=== PATIENT | male | born 1995 | race African-American/Black ===

== ENCOUNTER 2019-04-30 08:39 | Emergency (ER) | payer BC, MEDICAID, OTHER ==
[2019-04-30] MEDS ORDERED: DIPHENHYDRAMINE HCL 50 MG/ML VIAL IV ONE (10:51)
[2019-04-30] MEDS ORDERED: NORMAL SALINE 1000 ML 1,000 ML IV ONE ×2 (10:51→13:09)
[2019-04-30] MEDS ORDERED: PROCHLORPERAZINE EDISYLATE INJ 10 MG/2 ML VIAL IV ONE (10:51)
--- NOTE | 2019-04-30 11:33 | ER Document Report ---
Entered by SAMM ESTRELLA SCRIBE 04/30/19 1051 Acting as scribe for:RAFA PRESTON MD ED Headache - General Chief Complaint: Headache Stated Complaint: HEADACHE,DIZZY Time Seen by Provider: 04/30/19 10:42 Primary Care Provider: IVONNE PEREZ MD [Primary Care Provider] - Follow up as needed Mode of Arrival: Ambulatory Information source: Patient Notes: This 23 year old male patient presents to the ED today with complaints of a headache that began x2 days ago. Patient describes the headache as a throbbing pain near his forehead and temporal regions of his face that is increased when he stands. Patient reports nausea, dizziness, light/sound sensitivity, and pain behind his eyes. Patient states that he took tylenol with no relief. Patient denies cough, sneezing, vomiting, and sore throat. Patient notes that he did not receive a flu shot recently. Patient reports the headache started Tuesday evening, it was a slow onset and got progressively worse. He describes a throbbing sensation behind his eyes and forehead region. The throbbing is worse when he stands up. There is some nauseousness and dizziness when he stands up and looks about. There is some light and sound sensitivity. There is been no nausea or vomiting. He states he tried Tylenol and it helped some. He does not have a history of headaches. There is no cough, sneeze, or reported fever. TRAVEL OUTSIDE OF THE [place] IN LAST 30 DAYS: No - Related Data Allergies/Adverse Reactions: No Known Allergies Allergy (Verified 04/30/19 09:04) Past Medical History - General Information source: Patient - Social History Smoking Status: Never Smoker Cigarette use (# per day): No Chew tobacco use (# tins/day): No Smoking Education Provided: No Frequency of alcohol use: Occasional Drug Abuse: None Family History: DM Patient has suicidal ideation: No Patient has homicidal ideation: No - Immunizations Immunizations up to date: Yes Hx Diphtheria, Pertussis, Tetanus Vaccination: Yes Review of Systems - Review of Systems Constitutional: No symptoms reported EENT: See HPI, Eye pain, Other - Light and sound sensitivity. denies: Throat p ain Cardiovascular: See HPI, Dizziness Respiratory: See HPI Gastrointestinal: See HPI, Nausea, Other - Increased thirst for the past month Genitourinary: Other - Increased urination for the past month Male Genitourinary: No symptoms reported Musculoskeletal: No symptoms reported Skin: No symptoms reported Hematologic/Lymphatic: No symptoms reported Neurological/Psychological: See HPI, Headaches -: Yes All other systems reviewed and negative Physical Exam - Vital signs Vitals: Temp Pulse Resp BP Pulse Ox 98.8 F 94 16 123/69 97 04/30/19 08:43 04/30/19 08:43 04/30/19 08:43 04/30/19 08:43 04/30/19 08:43 Interpretation: Normal - General General appearance: Appears well, Alert - HEENT Head: Atraumatic, Tenderness - Frontal musculature tenderness with palpation in forehead. Temporal musculature tenderness with palpation Eyes: Other - Palpation to eyeballs causes pain. No nystagmus noted on looking left and right. He does complain of pain behind the eyeballs when he looks to the left or right. Pupils: PERRL Tympanic membrane: Normal Nasal: Normal Pharynx: Normal Neck: Other - When I have the patient flex his neck, he complains of pain to the posterior neck. Palpating over the cervical spinous processes is tender and becomes more tender when he attempts to flex his neck. There is no cervical muscle spasm or rigidity. - Respiratory Respiratory status: No respiratory distress Chest status: Nontender Breath sounds: Normal Chest palpation: Normal - Cardiovascular Rhythm: Regular Heart sounds: Normal auscultation Murmur: No - Abdominal Inspection: Normal Distension: No distension Bowel sounds: Normal Tenderness: Nontender Organomegaly: No organomegaly - Back Back: Normal, Nontender - Extremities General upper extremity: Normal inspection General lower extremity: Normal inspection - Neurological Neuro grossly intact: Yes - Psychological Associated symptoms: Normal affect, Normal mood - Skin Skin Temperature: Warm Skin Moisture: Moist Skin Color: Normal Course - Re-evaluation Re-evalutation: 04/30/19 13:06 Patient reports that his headache is only minimally improved. On asking him about blood sugars, he reports that he has had increased thirst and urination for about the past month. 04/30/19 14:46 Patient's hemoglobin A1c is greater than 14. The patient's physical exam suggest a viral syndrome with headache. CBC is unremarkable, does not suggest an infectious process. - Vital Signs Vital signs: Temp Pulse Resp BP Pulse Ox 98.8 F 94 16 123/69 97 04/30/19 08:43 04/30/19 08:43 04/30/19 08:43 04/30/19 08:43 04/30/19 08:43 - Laboratory Result Diagrams: 04/30/19 11:23 04/30/19 11:23 Laboratory results interpreted by me: 04/30/19 04/30/19 04/30/19 11:23 11:23 11:23 RBC 5.73 H MCH 26.0 L Sodium 136.2 L BUN 6 L Glucose 345 H Hemoglobin A1c % > 14.0 H Total Bilirubin 1.4 H Discharge - Discharge Clinical Impression: New onset type 2 diabetes mellitus, Viral syndrome Headache Qualifiers: Headache type: unspecified Headache chronicity pattern: acute headache Intractability: not intractable Qualified Code(s): R51 - Headache Condition: Stable Disposition: HOME, SELF-CARE Additional Instructions: Viral Syndrome: The physician has diagnosed a viral infection. Viruses not only cause "colds," but can cause many different symptoms including generalized aching, fever, headache, cough, diarrhea, nausea, vomiting, and fatigue. The treatment, for the most part, is simply relief of symptoms. This means that antibiotics are usually not given. Rest, fluids, pain medications and, occasionally, medication for the specific symptoms that are most bothersome will be prescribed. Use good handwashing to avoid passing the virus to others. Shared toys should be cleaned with disinfectant. Clean the toilets, sinks, and counter surfaces in bathrooms. Launder clothing in hot water. Contact the physician if you develop any new or unusual symptoms such as severe headache, stiff neck, high fever, chest pain, productive cough, or shortness of breath. You should be rechecked if you don't see marked improvement within seven to 10 days. Headache: The physician does not feel that the headache you are experiencing has a se rious underlying cause. Sometimes, a headache is the first symptom of another developing illness, such as a viral infection. . The treatment of headaches varies with the severity and cause of the pain. Not all headaches need pain shots. In fact, there is evidence that using narcotics for headaches may make them worse in the long run. The physician will determine the therapy that's in your best interest. If you develop a fever, if the headache is different from any you've previously experienced, or if the headache progressively worsens, then call your physician at once or go to the emergency room. Diabetes: You have an abnormally high blood sugar, this is called adult onset diabetes. It's very important that you follow up with your primary care provider to monitor and get control of your blood sugars. Uncontrolled high blood sugar leads to early heart disease, strokes, nerve damage, eye damage, and kidney damage. All diabetics should follow a diet designed to control the blood sugar. Overweight diabetics should exercise regularly and lose weight. If this is not sufficient to control the blood sugar, pills or insulin shots are necessary. Younger people who develop diabetes almost always require insulin daily. Home testing of blood sugars or urine sugar is required. Diabetic teaching is available to help you figure insulin doses and monitor the blood sugar. Call the physician if there is faintness, excess sleepiness, or very rapid breathing. If hypoglycemia (LOW blood sugar) develops, symptoms are shakiness, weakness, sweating, and confusion. In this case, you should eat or drink something with sugar at once. Start taking the metformin as prescribed today. Take Tylenol every 4 hours for headache and fever. Drink plenty of fluids throughout the day in the evening. Follow-up with your primary care provider in the next 2 to 3 days for recheck. RETURN TO THE EMERGENCY ROOM IF ANY NEW OR WORSENING SYMPTOMS. Prescriptions: Metformin HCl 850 mg PO BID #60 tablet Referrals: IVONNE PEREZ MD [Primary Care Provider] - Follow up in 3-5 days Scribe Attestation: 04/30/19 11:34 I personally performed the services described in the documentation, reviewed and edited the documentation which was dictated to the scribe in my presence, and it accurately records my words and actions. I personally performed the services described in the documentation, reviewed and edited the documentation which was dictated to the scribe in my presence, and it accurately records my words and actions.
[2019-04-30 11:51] LABS: ABSOLUTE EOSINOPHILS # (AUTO) 0.1 10^3/uL (0.0-0.6); ABSOLUTE LYMPHOCYTES (AUTO) 1.6 10^3/uL (0.5-4.7); ABSOLUTE MONOCYTES (AUTO) 0.6 10^3/uL (0.1-1.4); ABSOLUTE NEUT (AUTO) 2.7 10^3/uL (1.7-8.2); BASOPHILS % (AUTO) 0.4 % (0-2); EOSINOPHILS % (AUTO) 1.2 % (0-6); HEMATOCRIT 45.6 % (37.9-51.0); HEMOGLOBIN 14.9 g/dL (13.5-17.0); LYMPHOCYTES % (AUTO) 32.7 % (13-45); MEAN CORPUSCULAR HGB CONC 32.6 g/dL (32.0-36.0); MEAN CORPUSCULAR VOLUME 80 fl (80-97); MONOCYTES % (AUTO) 11.6 % (3-13); PLATELET COUNT 166 10^3/uL (150-450); RED BLOOD COUNT 5.73 10^6/uL (4.35-5.55); RED CELL DISTRIBUTION WIDTH 13.6 % (11.5-14.0); SEGMENTED NEUTROPHILS % (AUTO) 54.1 % (42-78); TOTAL CELLS COUNTED % (AUTO) 100 %; WHITE BLOOD COUNT 4.9 10^3/uL (4.0-10.5)
[2019-04-30 12:08] LABS: ALBUMIN 4.4 g/dL (3.5-5.0); ALKALINE PHOSPHATASE 80 U/L (38-126); ANION GAP 11 (5-19); ASPARTATE AMINO TRANSFERASE 39 U/L (17-59); BILIRUBIN,DIRECT 0.2 mg/dL (0.0-0.4); BILIRUBIN,TOTAL 1.4 mg/dL (0.2-1.3); BLOOD UREA NITROGEN 6 mg/dL (7-20); CALCIUM 9.8 mg/dL (8.4-10.2); CARBON DIOXIDE 26 mmol/L (22-30); CHLORIDE 99 mmol/L (98-107); GLUCOSE 345 mg/dL (75-110); POTASSIUM 4.4 mmol/L (3.6-5.0); TOTAL PROTEIN 7.3 g/dL (6.3-8.2)
[2019-04-30] MEDS ORDERED: KETOROLAC TROMETHAMINE INJ/PF 30 MG/1 ML SDV IV ONE (13:09)
[2019-04-30] MEDS ORDERED: ACETAMINOPHEN 325 MG TABLET PO ONE (14:57)
[2019-04-30] MEDS ORDERED: METFORMIN HCL 500 MG TABLET PO ONE (14:57)
[2019-04-30 15:28] VITALS: BP 127/67
== END 2019-04-30 15:32 | disposition home or self-care (01) ==
LOC: ER 08:39
DX: E11.9 Type 2 diabetes mellitus without complications (principal); B34.9 Viral infection, unspecified; R51 Headache; R42 Dizziness and giddiness; R11.0 Nausea; R63.1 Polydipsia
CPT/HCPCS: 99284; 96361; 96374; 96375; 36415; 85025; 80053; 83036; J1200; J1885; J0780; J7030

== ENCOUNTER 2019-05-02 10:25 | Emergency (ER) | payer OTHER ==
[2019-05-02] MEDS ORDERED: NORMAL SALINE 1000 ML 1,000 ML IV ONE ×2 (11:05→13:36)
[2019-05-02] MEDS ORDERED: MORPHINE SULFATE 10 MG/ML INJ IV ONE ×2 (11:06)
--- NOTE | 2019-05-02 11:07 | ER Document Report ---
ED Medical Screen (RME) - General Chief Complaint: Abdominal Pain Stated Complaint: ABDOMINAL PAIN Time Seen by Provider: 05/02/19 11:02 Primary Care Provider: IVONNE PEREZ MD [Primary Care Provider] - Follow up as needed Notes: Patient is a 23-year-old male who presents to the emergency department with a chief complaint of mid lower abdominal pain. He was seen here in the emergency department 2 days ago and was diagnosed with diabetes. Patient states that he has been vomiting ever since, but started to have abdominal mid lower abdominal pain since yesterday. Exam: Tender mid lower abdomen. I have greeted and performed a rapid initial assessment of this patient. A comprehensive ED assessment and evaluation of the patient, analysis of test results and completion of medical decision making process will be conducted by an additional ED providers. TRAVEL OUTSIDE OF THE [place] IN LAST 30 DAYS: No - Related Data Allergies/Adverse Reactions: No Known Allergies Allergy (Verified 05/02/19 10:38) Past Medical History - Social History Chew tobacco use (# tins/day): No Frequency of alcohol use: Occasional Drug Abuse: None - Immunizations Immunizations up to date: Yes Hx Diphtheria, Pertussis, Tetanus Vaccination: Yes Physical Exam - Vital signs Vitals: Temp Pulse Resp BP Pulse Ox 97.8 F 89 20 122/79 99 05/02/19 10:38 05/02/19 10:38 05/02/19 10:38 05/02/19 10:38 05/02/19 10:38 Course - Vital Signs Vital signs: Temp Pulse Resp BP Pulse Ox 97.8 F 89 20 122/79 99 05/02/19 10:38 05/02/19 10:38 05/02/19 10:38 05/02/19 10:38 05/02/19 10:38 Doctor's Discharge - Discharge Referrals: IVONNE PEREZ MD [Primary Care Provider] - Follow up as needed
[2019-05-02 11:51] LABS: ABSOLUTE LYMPHOCYTES (AUTO) 1.3 10^3/uL (0.5-4.7); ABSOLUTE MONOCYTES (AUTO) 0.7 10^3/uL (0.1-1.4); BASOPHILS % (AUTO) 0.5 % (0-2); EOSINOPHILS % (AUTO) 0.5 % (0-6); HEMATOCRIT 44.8 % (37.9-51.0); HEMOGLOBIN 14.8 g/dL (13.5-17.0); LYMPHOCYTES % (AUTO) 26.3 % (13-45); MEAN CORPUSCULAR HEMOGLOBIN 26.3 pg (27.0-33.4); MEAN CORPUSCULAR HGB CONC 33.1 g/dL (32.0-36.0); MEAN CORPUSCULAR VOLUME 80 fl (80-97); MONOCYTES % (AUTO) 13.2 % (3-13); PLATELET COUNT 158 10^3/uL (150-450); RED BLOOD COUNT 5.64 10^6/uL (4.35-5.55); RED CELL DISTRIBUTION WIDTH 13.7 % (11.5-14.0); SEGMENTED NEUTROPHILS % (AUTO) 59.5 % (42-78); TOTAL CELLS COUNTED % (AUTO) 100 %
[2019-05-02 12:05] LABS: ALBUMIN 4.5 g/dL (3.5-5.0); ALKALINE PHOSPHATASE 76 U/L (38-126); ANION GAP 19 (5-19); ASPARTATE AMINO TRANSFERASE 57 U/L (17-59); BILIRUBIN,DIRECT 0.2 mg/dL (0.0-0.4); BILIRUBIN,TOTAL 1.6 mg/dL (0.2-1.3); BLOOD UREA NITROGEN 8 mg/dL (7-20); CARBON DIOXIDE 17 mmol/L (22-30); CHLORIDE 99 mmol/L (98-107); GLUCOSE 273 mg/dL (75-110); POTASSIUM 4.2 mmol/L (3.6-5.0); TOTAL PROTEIN 7.6 g/dL (6.3-8.2)
[2019-05-02] MEDS ORDERED: IBUPROFEN 800 MG TABLET PO ONE (13:36)
[2019-05-02] MEDS ORDERED: METFORMIN HCL 500 MG TABLET PO ONE (13:36)
--- NOTE | 2019-05-02 13:41 | ER Document Report ---
ED General - General Chief Complaint: Abdominal Pain Stated Complaint: ABDOMINAL PAIN Time Seen by Provider: 05/02/19 11:02 Mode of Arrival: Medic Information source: Patient Notes: 23-year-old male presents emergency department with complaints of headache nausea vomiting diarrhea. Patient reports he was evaluated here in the emergency department Tuesday for a complaint of headache. It was discovered that he had diabetes. He reports his mother had diabetes. Patient reports he was prescribed metformin. He has taken 4 doses. He reports he felt better on Tuesday. He ate some Doritos. He reports started getting headache with nausea vomiting and diarrhea this morning. Denies fever. Patient is asking for something to eat and drink. TRAVEL OUTSIDE OF THE [place] IN LAST 30 DAYS: No - HPI Onset: This morning Quality of pain: Achy, Cramping Associated symptoms: Diarrhea, Headache, Nausea, Vomiting Exacerbated by: Denies Relieved by: Denies Similar symptoms previously: Yes Recently seen / treated by doctor: Yes - Related Data Allergies/Adverse Reactions: No Known Allergies Allergy (Verified 05/02/19 10:38) Past Medical History - General Information source: Patient - Social History Smoking Status: Never Smoker Chew tobacco use (# tins/day): No Frequency of alcohol use: Occasional Drug Abuse: None Lives with: Family Family History: DM Patient has suicidal ideation: No Patient has homicidal ideation: No Endocrine Medical History: Reports: Hx Diabetes Mellitus Type 2 Surgical Hx: Negative - Immunizations Immunizations up to date: Yes Hx Diphtheria, Pertussis, Tetanus Vaccination: Yes Review of Systems - Review of Systems Notes: Review HPI for review of systems., All other systems negative Physical Exam - Vital signs Vitals: Temp Pulse Resp BP Pulse Ox 97.8 F 89 20 122/79 99 05/02/19 10:38 05/02/19 10:38 05/02/19 10:38 05/02/19 10:38 05/02/19 10:38 - Notes Notes: PHYSICAL EXAMINATION: GENERAL: Well-appearing and in no acute distress HEAD: Atraumatic, normocephalic. EYES: Pupils equal round and reactive to light, extraocular movements intact, sclera anicteric, conjunctiva are normal. ENT: nares patent, oropharynx clear without exudates. Moist mucous membranes. NECK: Normal range of motion, supple without lymphadenopathy LUNGS: CTAB and equal. No wheezes rales or rhonchi. HEART: Regular rate and rhythm without murmurs ABDOMEN: Soft, RUQ/epigastric tenderness. No guarding, no rebound EXTREMITIES: Normal range of motion, no pitting edema. NEUROLOGICAL: Cranial nerves grossly intact. Normal sensory/motor exams. PSYCH: Normal mood, normal affect. SKIN: Warm, Dry, normal turgor, no rashes or lesions noted Course - Re-evaluation Re-evalutation: 05/02/19 16:07 23-year-old male presents with generalized abdominal pain and vomiting. Patient received 2 L of fluids. Patient is now holding down p.o. fluids eating crackers no vomiting since arrival. Patient looks good . labs unremarkable ultrasound shows fatty liver but LFTs are within normal limits. Last Accu-Chek was 191. Patient was instructed on clear liquids advance as tolerated. Follow-up with his primary care provider tuesday as scheduled. Patient verbalized understanding. Abdomen Ultrasound 05/02/19 13:36 IMPRESSION: LIMITED STUDY. HEPATOMEGALY WITH MARKED FATTY INFILTRATION OF THE LIVER. NO APPARENT ACUTE FINDINGS. Laboratory 05/02/19 05/02/19 05/02/19 11:35 11:35 14:49 WBC 5.0 RBC 5.64 H Hgb 14.8 Hct 44.8 MCV 80 MCH 26.3 L MCHC 33.1 RDW 13.7 Plt Count 158 Lymph % (Auto) 26.3 [place] % (Auto) 13.2 H Eos % (Auto) 0.5 Baso % (Auto) 0.5 Absolute Neuts (auto) 3.0 Absolute Lymphs (auto) 1.3 Absolute Monos (auto) 0.7 Absolute Eos (auto) 0.0 Absolute Basos (auto) 0.0 Seg Neutrophils % 59.5 Sodium 135.1 L Potassium 4.2 Chloride 99 Carbon Dioxide 17 L Anion Gap 19 BUN 8 Creatinine 0.86 Est GFR ( Amer) > 60 Est GFR (MDRD) Non-Af > 60 Glucose 273 H POC Glucose Calcium 10.0 Total Bilirubin 1.6 H Direct Bilirubin 0.2 Neonat Total Bilirubin Not Reportable Neonat Direct Bilirubin Not Reportable Neonat Indirect Bili Not Reportable AST 57 ALT 69 Alkaline Phosphatase 76 Total Protein 7.6 Albumin 4.5 Lipase 169.7 Urine Color YELLOW Urine Appearance CLEAR Urine pH 5.0 Ur Specific Perry 1.026 Urine Protein 30 H Urine Glucose (UA) >=500 H Urine Ketones 80 H Urine Blood NEGATIVE Urine Nitrite NEGATIVE Urine Bilirubin NEGATIVE Urine Urobilinogen NEGATIVE Ur Leukocyte Esterase NEGATIVE Urine WBC (Auto) 0 Urine RBC (Auto) 0 Urine Bacteria (Auto) TRACE Squamous Epi Cells Auto <1 Urine Mucus (Auto) RARE Urine Ascorbic Acid NEGATIVE 05/02/19 16:02 WBC RBC Hgb Hct MCV MCH MCHC RDW Plt Count Lymph % (Auto) [place] % (Auto) Eos % (Auto) Baso % (Auto) Absolute Neuts (auto) Absolute Lymphs (auto) Absolute Monos (auto) Absolute Eos (auto) Absolute Basos (auto) Seg Neutrophils % Sodium Potassium Chloride Carbon Dioxide Anion Gap BUN Creatinine Est GFR ( Amer) Est GFR (MDRD) Non-Af Glucose POC Glucose 191 H Calcium Total Bilirubin Direct Bilirubin Neonat Total Bilirubin Neonat Direct Bilirubin Neonat Indirect Bili AST ALT Alkaline Phosphatase Total Protein Albumin Lipase Urine Color Urine Appearance Urine pH Ur Specific Perry Urine Protein Urine Glucose (UA) Urine Ketones Urine Blood Urine Nitrite Urine Bilirubin Urine Urobilinogen Ur Leukocyte Esterase Urine WBC (Auto) Urine RBC (Auto) Urine Bacteria (Auto) Squamous Epi Cells Auto Urine Mucus (Auto) Urine Ascorbic Acid 05/02/19 19:08 - Vital Signs Vital signs: Temp Pulse Resp BP Pulse Ox 99.1 F 71 18 132/77 H 98 05/02/19 17:12 05/02/19 17:12 05/02/19 17:12 05/02/19 17:12 05/02/19 17:12 - Laboratory Result Diagrams: 05/02/19 11:35 05/02/19 11:35 Laboratory results interpreted by me: 05/02/19 05/02/19 05/02/19 11:35 11:35 14:49 RBC 5.64 H MCH 26.3 L [place] % (Auto) 13.2 H Sodium 135.1 L Carbon Dioxide 17 L Glucose 273 H POC Glucose Total Bilirubin 1.6 H Urine Protein 30 H Urine Glucose (UA) >=500 H Urine Ketones 80 H 05/02/19 16:02 RBC MCH [place] % (Auto) Sodium Carbon Dioxide Glucose POC Glucose 191 H Total Bilirubin Urine Protein Urine Glucose (UA) Urine Ketones - Diagnostic Test Radiology reviewed: Reports reviewed Discharge - Discharge Clinical Impression: Nausea vomiting and diarrhea, New onset type 2 diabetes mellitus, Fatty liver Abdominal pain Qualifiers: Abdominal location: right upper quadrant Qualified Code(s): R10.11 - Right upper quadrant pain Condition: Stable Disposition: HOME, SELF-CARE Instructions: Abdominal Pain ([facility]), Antinausea Medication ([facility]), Diarrhea, Nonspecific ([facility]), Intravenous (IV) Fluids ([facility]), Vomiting ([facility]) Additional Instructions: *You have been evaluated for abdominal pain, nausea vomiting, fatty liver *Take your diabetic medication as prescribed, take Zofran as indicated for nausea Push fluids clear liquid diet advance as tolerated *Follow up with your primary care provider Tuesday as scheduled *Return to ED for worsening condition, changes, needs *Return to ED if not better in 24 hours Forms: Return to Work
--- NOTE | 2019-05-02 15:05 | RADIOLOGY REPORT (SQ) ---
EXAM DESCRIPTION: U/S ABDOMEN LIMITED W/O DOP COMPLETED DATE/TIME: 05/02/2019 2:52 pm REASON FOR STUDY: ruq abd pain n/v/d COMPARISON: None. TECHNIQUE: Dynamic and static grayscale images acquired of the liver and recorded on PACS. Addition al selected color Doppler and spectral images recorded. Selected velocities recorded. Note: Study does not meet criteria for full duplex/doppler scan LIMITATIONS: Study limited due to the patient's body habitus and marked fatty infiltration of the li celia. FINDINGS: LIVER: Enlarged, measuring 21 cm. Limited penetration. Echotexture is coarse with increa sed echogenicity consistent with fatty infiltration. No focal lesions are seen. LIVER VASCULATURE: The portal vein could not be visualized. GALLBLADDER: No stones. Normal wall thickness. No pericholecystic fluid. ULTRASOUND-DETECTED MCKENZIE'S SIGN: Negative. INTRAHEPATIC DUCTS AND COMMON DUCT: The extrahepatic bile ducts could not be visualized. ASCITES: None. OTHER: No other significant finding. IMPRESSION: LIMITED STUDY. HEPATOMEGALY WITH MARKED FATTY INFILTRATION OF THE LIVER. NO APPARENT A CUTE FINDINGS. TECHNICAL DOCUMENTATION: JOB ID: [id number] [employer]- All Rights Reserved Reading location - IP/workstation name: [email or web address]
[2019-05-02 15:17] LABS: APPEARANCE,URINE CLEAR; BILIRUBIN,URINE NEGATIVE (NEGATIVE); COLOR,URINE YELLOW; GLUCOSE, URINE >=500 mg/dL (NEGATIVE); KETONES,URINE 80 mg/dL (NEGATIVE); LEUKOCYTE ESTERASE,URINE NEGATIVE (NEGATIVE); NITRITE,URINE NEGATIVE (NEGATIVE); PROTEIN,URINE 30 mg/dL (NEGATIVE); URINE SPECIFIC GRAVITY 1.026; UROBILINOGEN,URINE NEGATIVE mg/dL (<2.0)
[2019-05-02] MEDS ORDERED: ONDANSETRON ODT 4 MG TAB (6 TAB/ER DISP) PO PRN (16:23)
[2019-05-02 17:11] VITALS: BP 132/77
== END 2019-05-02 17:12 | disposition home or self-care (01) ==
LOC: ER 10:25
DX: K76.0 Fatty (change of) liver, not elsewhere classified (principal); E11.9 Type 2 diabetes mellitus without complications; R51 Headache; R11.2 Nausea with vomiting, unspecified; R19.7 Diarrhea, unspecified; R10.11 Right upper quadrant pain
CPT/HCPCS: 99284; 96361; 96374; 36415; 82962; 83690; 85025; 80053; 81001; 76705; J2270; J7030

== ENCOUNTER 2019-05-03 04:29 | Observation (INO) | payer OTHER ==
[2019-05-03] MEDS ORDERED: NORMAL SALINE 500 ML IV ONE (04:52)
[2019-05-03 05:29] LABS: ABSOLUTE MONOCYTES (AUTO) 0.5 10^3/uL (0.1-1.4); RED BLOOD COUNT 5.57 10^6/uL (4.35-5.55); TOTAL CELLS COUNTED % (AUTO) 100 %
[2019-05-03 05:37] LABS: MEAN CORPUSCULAR VOLUME 79 fl (80-97)
[2019-05-03 05:53] LABS: HEMATOCRIT 44.1 % (37.9-51.0); WHITE BLOOD COUNT 6.2 10^3/uL (4.0-10.5)
[2019-05-03 05:54] LABS: ABSOLUTE LYMPHOCYTES (AUTO) 0.9 10^3/uL (0.5-4.7); ABSOLUTE NEUT (AUTO) 4.7 10^3/uL (1.7-8.2); BASOPHILS % (AUTO) 0.4 % (0-2); EOSINOPHILS % (AUTO) 0.3 % (0-6); LYMPHOCYTES % (AUTO) 15.4 % (13-45); MONOCYTES % (AUTO) 8.2 % (3-13); PLATELET COUNT 174 10^3/uL (150-450); RED CELL DISTRIBUTION WIDTH 13.8 % (11.5-14.0); SEGMENTED NEUTROPHILS % (AUTO) 75.7 % (42-78)
[2019-05-03 05:57] LABS: ALBUMIN 4.5 g/dL (3.5-5.0); ALKALINE PHOSPHATASE 77 U/L (38-126); ASPARTATE AMINO TRANSFERASE 59 U/L (17-59); BILIRUBIN,DIRECT 0.3 mg/dL (0.0-0.4); BILIRUBIN,TOTAL 1.6 mg/dL (0.2-1.3); BLOOD UREA NITROGEN 7 mg/dL (7-20); CALCIUM 10.1 mg/dL (8.4-10.2); CARBON DIOXIDE 12 mmol/L (22-30); GLUCOSE 259 mg/dL (75-110); TOTAL PROTEIN 7.4 g/dL (6.3-8.2)
[2019-05-03 06:03] LABS: CHLORIDE 102 mmol/L (98-107)
[2019-05-03 06:06] LABS: ANION GAP 22 (5-19)
[2019-05-03 06:25] LABS: APPEARANCE,URINE CLEAR; BILIRUBIN,URINE NEGATIVE (NEGATIVE); COLOR,URINE STRAW; GLUCOSE, URINE >=500 mg/dL (NEGATIVE); KETONES,URINE 80 mg/dL (NEGATIVE); LEUKOCYTE ESTERASE,URINE NEGATIVE (NEGATIVE); NITRITE,URINE NEGATIVE (NEGATIVE); PROTEIN,URINE NEGATIVE (NEGATIVE); URINE SPECIFIC GRAVITY 1.016; UROBILINOGEN,URINE NEGATIVE mg/dL (<2.0)
[2019-05-03] MEDS ORDERED: MORPHINE SULFATE 10 MG/ML INJ IV ONE ×2 (06:57→09:29)
[2019-05-03] MEDS ORDERED: ONDANSETRON HCL INJ/PF 4 MG/2 ML SDV IV ONE ×2 (06:57→09:29)
[2019-05-03] MEDS ORDERED: LIDOCAINE 2% VISCOUS SOLN 15 ML UDCUP PO ONE ×2 (06:58→15:06)
[2019-05-03] MEDS ORDERED: MAG HYDROX/AL HYDROX/SIMETH SUSP 30 ML UDCUP PO ONE ×2 (06:58→15:06)
[2019-05-03] MEDS: RINGERS SOLUTION,LACTATED 1,000 ML IV PRN ×3 (07:16→16:40)
[2019-05-03 07:22] LABS: PHOSPHORUS 2.5 mg/dL (2.5-4.5)
[2019-05-03 07:59] LABS: VENOUS BLOOD BASE EXCESS -8.2 mmol/L; VENOUS BLOOD HCO3 13.8 mmol/L (20-32); VENOUS BLOOD PCO2 22.4 mmHg (35-63); VENOUS BLOOD PH 7.41 (7.30-7.42)
--- NOTE | 2019-05-03 08:43 | ER Document Report ---
Entered by DENYS AWAN SCRIBE 05/03/19 0627 Acting as scribe for:RAFA PRESTON MD ED GI/ - General Chief Complaint: Abdominal Pain Stated Complaint: ABDOMINAL PAIN Time Seen by Provider: 05/03/19 06:24 Notes: This 23 year old male patient presents to the emergency department today for complaints of lower abdominal pain with associated nausea and vomiting. Patient was seen here initially on 04/30 for a headache with associated dizziness which has since subsided. Patient was seen here again yesterday (05/02) for nausea without vomiting, diarrhea, and lower abdominal pain and was discharged with zofran. Patient reports that last night at about 10:30 PM he began vomiting and had increasing abdominal pain. Patient's serum CO2 on 04/30 was 26 and yesterday on 05/02 it was 17. On 04/30 the patient was diagnosed with Type II diabetes and was prescribed metformin. The patient had a right upper quadrant abdominal ultrasound done yesterday showing fatty infiltration liver with hepatomegaly, with the liver measuring 21 cm. Review of the chart from yesterday shows that yesterday morning he developed the nausea, vomiting, diarrhea and upper abdominal pain. He had a gallbladder ultrasound done that showed fatty infiltration of the liver and hepatomegaly with the liver measuring 21 cm. At that time he had had 4 doses of his Metformin. Yesterday in the emergency room he was treated with normal saline, morphine, metformin, Motrin, and Zofran. TRAVEL OUTSIDE OF THE [place] IN LAST 30 DAYS: No - Related Data Allergies/Adverse Reactions: No Known Allergies Allergy (Verified 05/02/19 10:38) Home Medications: metformin Past Medical History - Social History Smoking Status: Never Smoker Frequency of alcohol use: Occasional Drug Abuse: None Family History: DM Patient has suicidal ideation: No Patient has homicidal ideation: No Endocrine Medical History: Reports: Hx Diabetes Mellitus Type 2 - Immunizations Immunizations up to date: Yes Hx Diphtheria, Pertussis, Tetanus Vaccination: Yes Physical Exam - Vital signs Vitals: Temp Pulse Resp BP Pulse Ox 98.1 F 75 18 126/78 H 100 05/03/19 05:00 05/03/19 05:00 05/03/19 05:00 05/03/19 05:00 05/03/19 05:00 Interpretation: Normal - General General appearance: Alert, Other - uncomfortable - HEENT Head: Normocephalic, Atraumatic Eyes: Normal Pupils: PERRL Mucous membranes: Dry - with ketone odor on breath - Respiratory Respiratory status: No respiratory distress Chest status: Nontender Breath sounds: Normal Chest palpation: Normal - Cardiovascular Rhythm: Regular Heart sounds: Normal auscultation Murmur: No - Abdominal Inspection: Other - abdominal cramping Tenderness: Tender - epigastric - Back Back: Normal, Nontender - Extremities General upper extremity: Normal inspection. No: Edema General lower extremity: Normal inspection. No: Edema - Neurological Neuro grossly intact: Yes Cognition: Normal Orientation: AAOx4 Dennys Coma Scale Eye Opening: Spontaneous Dennys Coma Scale Verbal: Oriented [place] Coma Scale Motor: Obeys Commands [place] Coma Scale Total: 15 Speech: Normal - Psychological Associated symptoms: Normal affect, Normal mood - Skin Skin Temperature: Warm Skin Moisture: Dry Skin Color: Normal Course - Re-evaluation Re-evalutation: 05/03/19 11:57 Patient reports that the nauseousness is much better at this time. He has not urinated since the first time when he provided a specimen earlier today. His abdominal pain is improved at this time. 05/03/19 15:42 The repeat Chem-7 done after 1 L of normal saline and 3 L of lactated Ringer's, shows the anion gap has now closed from 22 down to 13. Serum CO2 has come up from 12 to 20. A venous blood gas done this morning showed a pH of 7.41 with a PCO2 of 22.4 The patient's metabolic acidosis with respiratory alkalosis appears to be multifactorial, most likely predominantly caused by the nausea vomiting diarrhea. I will add a serum lactate measurement to see if this may be a lactic acidosis due to the metformin he was started on. - Vital Signs Vital signs: Temp Pulse Resp BP Pulse Ox 98.3 F 75 23 H 122/79 100 05/03/19 15:01 05/03/19 05:00 05/03/19 15:01 05/03/19 15:01 05/03/19 15:01 - Laboratory Result Diagrams: 05/03/19 05:10 05/03/19 14:14 Laboratory results interpreted by me: 05/03/19 05/03/19 05/03/19 05:10 05:10 05:30 RBC 5.57 H MCV 79 L VBG pCO2 VBG HCO3 Sodium 136.1 L Carbon Dioxide 12 L Anion Gap 22 H BUN Glucose 259 H POC Glucose Total Bilirubin 1.6 H Urine Glucose (UA) >=500 H Urine Ketones 80 H 05/03/19 05/03/19 05/03/19 07:15 13:04 14:14 RBC MCV VBG pCO2 22.4 L VBG HCO3 13.8 L Sodium 135.8 L Carbon Dioxide 20 L Anion Gap BUN 6 L Glucose 219 H POC Glucose 197 H Total Bilirubin Urine Glucose (UA) Urine Ketones - Diagnostic Test Radiology reviewed: Image reviewed, Reports reviewed - Acute abdominal series does not show any significant abnormality. There is a large amount of what appe ars to be hard stool in the right colon. - Consults Dr. Mcgrath Time consulted: 15:30 Consulted provider: will come to ER Critical Care Note - Critical Care Note Total time excluding time spent on procedures (mins): 40 Discharge - Discharge Clinical Impression: Nausea vomiting and diarrhea, Fatty liver, Viral syndrome, New onset type 2 diabetes mellitus, Metabolic acidosis Abdominal pain Qualifiers: Abdominal location: upper abdomen, unspecified Qualified Code(s): R10.10 - Upper abdominal pain, unspecified Condition: Stable Disposition: ADMITTED INPATIENT Admitting Provider: Ramila (Hospitalist) Unit Admitted: IMCU Scribe Attestation: 05/03/19 09:31 I personally performed the services described in the documentation, reviewed and edited the documentation which was dictated to the scribe in my presence, and it accurately records my words and actions. I personally performed the services described in the documentation, reviewed and edited the documentation which was dictated to the scribe in my presence, and it accurately records my words and actions.
[2019-05-03] MEDS ORDERED: RINGERS SOLUTION,LACTATED 1,000 ML IV ONE (09:29)
[2019-05-03] MEDS ORDERED: INSULIN GLARGINE,HUM.REC.ANLOG 1,000 UNIT/10 ML VIAL SUBCUT SCH ×2 (10:00→16:15)
--- NOTE | 2019-05-03 11:19 | RADIOLOGY REPORT (SQ) ---
EXAM DESCRIPTION: ACUTE ABDOMEN SERIES COMPLETED DATE/TIME: 05/03/2019 10:26 am REASON FOR STUDY: Viral syndrome, N V, upper abdominal pain COMPARISON: None. NUMBER OF VIEWS: Three views. TECHNIQUE: Frontal chest, supine abdomen and upright/decubitus abdomen radiographic images acquired. LIMITATIONS: None. FINDINGS: CHEST: Lungs clear of infiltrates. FREE AIR: None. No abnormal gas collections. BOWEL GAS PATTERN: Nonobstructive pattern. No dilated loops or air fluid levels. CALCIFICATIONS: No suspicious calcifications. HARDWARE: None in the abdomen. SOFT TISSUES: No gross mass or suggestion of organomegaly. BONES: No acute fracture. No worrisome bone lesions. OTHER: No other significant finding. IMPRESSION: NO RADIOGRAPHIC EVIDENCE FOR ACUTE ABDOMINAL DISEASE. TECHNICAL DOCUMENTATION: JOB ID: [id number] [employer]- All Rights Reserved Reading location - IP/workstation name: [email or web address]
[2019-05-03 14:49] LABS: ANION GAP 13 (5-19); BLOOD UREA NITROGEN 6 mg/dL (7-20); CALCIUM 9.6 mg/dL (8.4-10.2); CARBON DIOXIDE 20 mmol/L (22-30); CHLORIDE 103 mmol/L (98-107); GLUCOSE 219 mg/dL (75-110); POTASSIUM 4.2 mmol/L (3.6-5.0)
[2019-05-03] MEDS ORDERED: RINGERS SOLUTION,LACTATED 1,000 ML IV PRN (15:56)
[2019-05-03] MEDS ORDERED: MORPHINE SULFATE 10 MG/ML INJ IV PRN ×2 (15:58)
[2019-05-03] MEDS ORDERED: IPRATROPIUM/ALBUTEROL 0.5-2.5 MG/3 ML AMPUL NEB PRN (16:01)
[2019-05-03] MEDS ORDERED: ACETAMINOPHEN 325 MG TABLET PO PRN (16:01)
[2019-05-03] MEDS ORDERED: DEXTROSE 50%-WATER 25 GM/50 ML DISP.SYRIN IV PRN ×2 (16:04)
[2019-05-03] MEDS ORDERED: GLUCAGON,HUMAN RECOMB 1 MG INJ IM PRN (16:04)
[2019-05-03] MEDS ORDERED: DEXTROSE 40% GEL 15 GM TUBE PO PRN ×2 (16:04)
[2019-05-03] MEDS: MORPHINE SULFATE 10 MG/ML INJ IV PRN ×2 (16:38→23:50)
[2019-05-03] MEDS: PROMETHAZINE HCL INJ 25 MG/1 ML VIAL IV PRN (16:38)
[2019-05-03] MEDS ORDERED: INSULIN GLARGINE,HUM.REC.ANLOG 1,000 UNIT/10 ML VIAL SUBCUT ONE (17:00)
--- NOTE | 2019-05-03 17:44 | PDOC H&P ---
History of Present Illness Admission Date/PCP: 05/03/19 16:04 History of Present Illness: CHUCK CHARLES is a 23 year old male with no significant past medical history presented to ED complaining of headache on 04/30/2019 associated with dizziness was sent home from ED, presented back to the ED on 05/02/2019 complaining of nausea, vomiting, diarrhea and epigastric abdominal pain, was noted to have a bicarb of 26 on 04/30/2019 and 17 on 05/02/2019, an upper quadrant abdominal ultrasound was done which was positive for hepatic steatosis patient also had his hemoglobin A1c checked which came back at 14%, was sent home on metformin and presented back to ED complaining of persistent nausea vomiting and abdominal pain note to have anion gap of 22, UA positive for glucosuria and ketones of 80 patient was started on aggressive volume resuscitation, IV morphine for abdominal pain and antiemetics, anion gap closed to 13 however patient continued to complain of nausea vomiting and abdominal pain. Hospitalist consulted for admission. On my encounter patient is complaining of persistent epigastric abdominal pain, nausea and vomiting, and is stating that for the last several months he has noticed to have excessive polyuria, polyphagia and nocturia denies ever being diagnosed with diabetes however states that her mother has history of type 2 diabetes. Denies any chest pain, fever, chills, vision changes, weight changes, sick contact, recent travel, numbness, tingling, lower extremity edema, dysuria. Past Medical History Endocrine Medical History: Reports: Diabetes Mellitus Type 2 Social History Smoking Status: Never Smoker - Advance Directive Resuscitation Status: Full Code Family History Family History: DM Parental Family History Reviewed: Yes Children Family History Reviewed: Yes Sibling(s) Family History Reviewed.: Yes Medication/Allergy Allergies/Adverse Reactions: No Known Allergies Allergy (Verified 05/02/19 10:38) Review of Systems Review of Systems: as per hpi Physical Exam Vital Signs: Temp Pulse Resp BP Pulse Ox 98.3 F 75 19 123/78 100 05/03/19 15:01 05/03/19 05:00 05/03/19 17:02 05/03/19 17:02 05/03/19 17:02 Intake & Output 05/02/19 05/03/19 05/04/19 06:59 06:59 06:59 Intake Total 500 2106 Output Total 600 Balance -100 2106 Weight 122.47 kg General appearance: PRESENT: no acute distress, obese, well-developed, well- nourished Head exam: PRESENT: atraumatic, normocephalic Respiratory exam: PRESENT: clear to auscultation beatriz. ABSENT: rales, rhonchi, wheezes Cardiovascular exam: PRESENT: RRR. ABSENT: diastolic murmur, rubs, systolic murmur GI/Abdominal exam: PRESENT: guarding, normal bowel sounds, tenderness. ABSENT: distended, mass, organolmegaly, rebound Extremities exam: PRESENT: full ROM. ABSENT: calf tenderness, clubbing, pedal edema Neurological exam: PRESENT: alert, awake, oriented to person, oriented to place, oriented to time, oriented to situation, CN II-XII grossly intact. ABSENT: motor sensory deficit Skin exam: PRESENT: dry, intact, warm, other - Vitiligo on left frontal head.. ABSENT: cyanosis, rash Results Laboratory Results: 05/03/19 05:10 05/03/19 14:14 05/03/19 05/03/19 05/03/19 05:10 05:10 05:10 WBC 6.2 RBC 5.57 H Hgb 15.0 Hct 44.1 MCV 79 L MCH 27.0 MCHC 34.0 RDW 13.8 Plt Count 174 Seg Neutrophils % 75.7 VBG pH VBG pCO2 VBG HCO3 VBG Base Excess Sodium 136.1 L Potassium 4.0 Chloride 102 Carbon Dioxide 12 L Anion Gap 22 H BUN 7 Creatinine 0.83 Est GFR ( Amer) > 60 Glucose 259 H Lactic Acid Calcium 10.1 Phosphorus 2.5 Magnesium 1.6 Total Bilirubin 1.6 H AST 59 Alkaline Phosphatase 77 Total Protein 7.4 Albumin 4.5 Lipase 232.0 Urine Color Urine Appearance Urine pH Ur Specific [place] Urine Protein Urine Glucose (UA) Urine Ketones Urine Blood Urine Nitrite Ur Leukocyte Esterase Urine WBC (Auto) Urine RBC (Auto) 05/03/19 05/03/19 05/03/19 05:30 05:30 07:15 WBC RBC Hgb Hct MCV MCH MCHC RDW Plt Count Seg Neutrophils % VBG pH 7.41 VBG pCO2 22.4 L VBG HCO3 13.8 L VBG Base Excess -8.2 Sodium Potassium Chloride Carbon Dioxide Anion Gap BUN Creatinine Est GFR ( Amer) Glucose Lactic Acid Calcium Phosphorus Magnesium Total Bilirubin AST Alkaline Phosphatase Total Protein Albumin Lipase Urine Color STRAW Urine Appearance CLEAR Urine pH 5.0 Ur Specific [place] 1.016 Urine Protein NEGATIVE Urine Glucose (UA) >=500 H Urine Ketones 80 H Urine Blood NEGATIVE Urine Nitrite NEGATIVE Ur Leukocyte Esterase NEGATIVE Urine WBC (Auto) 1 Urine RBC (Auto) 05/03/19 05/03/19 14:14 16:30 WBC RBC Hgb Hct MCV MCH MCHC RDW Plt Count Seg Neutrophils % VBG pH VBG pCO2 VBG HCO3 VBG Base Excess Sodium 135.8 L Potassium 4.2 Chloride 103 Carbon Dioxide 20 L Anion Gap 13 BUN 6 L Creatinine 0.86 Est GFR ( Amer) > 60 Glucose 219 H Lactic Acid 1.0 Calcium 9.6 Phosphorus Magnesium Total Bilirubin AST Alkaline Phosphatase Total Protein Albumin Lipase Urine Color Urine Appearance Urine pH Ur Specific [place] Urine Protein Urine Glucose (UA) Urine Ketones Urine Blood Urine Nitrite Ur Leukocyte Esterase Urine WBC (Auto) Urine RBC (Auto) Impressions: Acute Abdomen Series 05/03/19 09:30 IMPRESSION: NO RADIOGRAPHIC EVIDENCE FOR ACUTE ABDOMINAL DISEASE. Assessment and Plan - Diagnosis (1) DKA (diabetic ketoacidoses) Qualifiers: Diabetes mellitus type: type 1 Is this a current diagnosis for this admission?: Yes Plan: Given patient's presentation, age, metabolic acidosis, elevated anion gap, urine ketones, patient most likely has undiagnosed type 1 diabetes presenting in DKA. Anion gap already closed with aggressive volume resuscitation. Still complaining of nausea vomiting and epigastric abdominal pain Admit to IMCU, basal insulin, sliding scale insulin, correctional insulin, hypoglycemic protocol, Accu-Chek, antiemetics, opioid and non-opioid analgesics, basic education, advance diet as tolerated. We will get anti-RUBEN. (2) DKA, type 1 Qualifiers: Diabetes mellitus complication detail: without coma Qualified Code(s): E10.10 - Type 1 diabetes mellitus with ketoacidosis without coma Is this a current diagnosis for this admission?: Yes Plan: As per problem #1. (3) Hepatic steatosis Is this a current diagnosis for this admission?: Yes Plan: Likely alcohol-related. Will obtain lipid panel. Outpatient gastroenterology follow-up. (4) Nausea vomiting and diarrhea Is this a current diagnosis for this admission?: Yes Plan: Due to #1. Supportive measures, antiemetics, monitor volume status and electrolytes replace as needed.
[2019-05-03] MEDS: INSULIN LISPRO 100 UNIT/ML 3 ML VIAL SUBCUT SCH (21:34)
[2019-05-03] MEDS: FAMOTIDINE INJ/PF 20 MG/2 ML SDV IV SCH (21:34)
--- NOTE | 2019-05-03 23:24 | EKG REPORT ---
SEVERITY:- ABNORMAL ECG - SINUS RHYTHM NONSPECIFIC T ABNORMALITIES, LATERAL LEADS : Confirmed by: Darling Perales MD 03-May-2019 23:23:58
[2019-05-04] MEDS: RINGERS SOLUTION,LACTATED 1,000 ML IV PRN (05:16)
[2019-05-04 06:32] LABS: ABSOLUTE LYMPHOCYTES (AUTO) 1.5 10^3/uL (0.5-4.7); ABSOLUTE MONOCYTES (AUTO) 0.7 10^3/uL (0.1-1.4); BASOPHILS % (AUTO) 0.4 % (0-2); EOSINOPHILS % (AUTO) 0.7 % (0-6); HEMATOCRIT 40.1 % (37.9-51.0); HEMOGLOBIN 13.4 g/dL (13.5-17.0); LYMPHOCYTES % (AUTO) 28.8 % (13-45); MEAN CORPUSCULAR HEMOGLOBIN 26.3 pg (27.0-33.4); MEAN CORPUSCULAR HGB CONC 33.3 g/dL (32.0-36.0); MEAN CORPUSCULAR VOLUME 79 fl (80-97); MONOCYTES % (AUTO) 13.7 % (3-13); PLATELET COUNT 172 10^3/uL (150-450); RED BLOOD COUNT 5.08 10^6/uL (4.35-5.55); RED CELL DISTRIBUTION WIDTH 13.8 % (11.5-14.0); SEGMENTED NEUTROPHILS % (AUTO) 56.4 % (42-78); TOTAL CELLS COUNTED % (AUTO) 100 %; WHITE BLOOD COUNT 5.3 10^3/uL (4.0-10.5)
[2019-05-04 06:49] LABS: ALBUMIN 3.7 g/dL (3.5-5.0); ALKALINE PHOSPHATASE 59 U/L (38-126); ANION GAP 15 (5-19); ASPARTATE AMINO TRANSFERASE 43 U/L (17-59); BILIRUBIN,DIRECT 0.4 mg/dL (0.0-0.4); BILIRUBIN,TOTAL 1.1 mg/dL (0.2-1.3); BLOOD UREA NITROGEN 10 mg/dL (7-20); CALCIUM 9.5 mg/dL (8.4-10.2); CARBON DIOXIDE 19 mmol/L (22-30); CHLORIDE 103 mmol/L (98-107); GLUCOSE 220 mg/dL (75-110); POTASSIUM 4.1 mmol/L (3.6-5.0); TOTAL PROTEIN 6.5 g/dL (6.3-8.2)
[2019-05-04] MEDS: ENOXAPARIN SODIUM INJ 40 MG/0.4 ML DISP.SYRIN SUBCUT SCH ×2 (08:15→09:59)
[2019-05-04] MEDS: ONDANSETRON HCL INJ/PF 4 MG/2 ML SDV IV PRN (08:17)
[2019-05-04] MEDS ORDERED: GLUCAGON,HUMAN RECOMB 1 MG INJ IM PRN (09:15)
[2019-05-04] MEDS ORDERED: DEXTROSE 40% GEL 15 GM TUBE PO PRN ×2 (09:15)
[2019-05-04] MEDS ORDERED: DEXTROSE 50%-WATER 25 GM/50 ML DISP.SYRIN IV PRN ×2 (09:15)
[2019-05-04] MEDS: INSULIN LISPRO 100 UNIT/ML 3 ML VIAL SUBCUT SCH ×8 (09:56→21:55)
[2019-05-04] MEDS: FAMOTIDINE INJ/PF 20 MG/2 ML SDV IV SCH (09:57)
[2019-05-04] MEDS ORDERED: INSULIN GLARGINE,HUM.REC.ANLOG 1,000 UNIT/10 ML VIAL SUBCUT SCH (10:00)
[2019-05-04] MEDS ORDERED: MORPHINE SULFATE 10 MG/ML INJ IV PRN (13:15)
[2019-05-04] MEDS ORDERED: INSULIN GLARGINE,HUM.REC.ANLOG 1,000 UNIT/10 ML VIAL SUBCUT ONE (13:17)
--- NOTE | 2019-05-04 13:22 | PDOC PROGRESS REPORT ---
Subjective Progress Note for:: 05/04/19 Subjective:: CHUCK CHARLES is a 23 year old male with no significant past medical history presented to ED complaining of headache on 04/30/2019 associated with dizziness was sent home from ED, presented back to the ED on 05/02/2019 complaining of nausea, vomiting, diarrhea and epigastric abdominal pain, was noted to have a bicarb of 26 on 04/30/2019 and 17 on 05/02/2019, an upper quadrant abdominal ultrasound was done which was positive for hepatic steatosis patient also had h is hemoglobin A1c checked which came back at 14%, was sent home on metformin and presented back to ED complaining of persistent nausea vomiting and abdominal pain note to have anion gap of 22, UA positive for glucosuria and ketones of 80 patient was started on aggressive volume resuscitation, IV morphine for abdominal pain and antiemetics, anion gap closed to 13 however patient continued to complain of nausea vomiting and abdominal pain. Hospitalist consulted for admission. On my encounter patient is complaining of persistent epigastric abdominal pain, nausea and vomiting, and is stating that for the last several months he has noticed to have excessive polyuria, polyphagia and nocturia denies ever being diagnosed with diabetes however states that her mother has history of type 2 diabetes. Denies any chest pain, fever, chills, vision changes, weight changes, sick contact, recent travel, numbness, tingling, lower extremity edema, dysuria 05/04/2019. No acute events overnight. Patient abdominal pain nausea vomiting heartburn much improved compared to yesterday, still complaining of mild abdominal pain otherwise denies any fever, chills, nausea, vomiting, diarrhea, constipation or any urinary symptoms. Reason For Visit: DKA,METABOLIC ACIDOSIS, N/V Physical Exam Vital Signs: Temp Pulse Resp BP Pulse Ox 98.9 F 66 22 H 122/68 100 05/04/19 11:18 05/04/19 11:18 05/04/19 11:18 05/04/19 11:18 05/04/19 11:18 Intake & Output 05/03/19 05/04/19 05/05/19 06:59 06:59 06:59 Intake Total 500 3633 869 Output Total 600 0 Balance -100 3633 869 Weight 122.47 kg 117.1 kg 117.1 kg General appearance: PRESENT: no acute distress, well-developed, well-nourished Head exam: PRESENT: atraumatic, normocephalic Respiratory exam: PRESENT: clear to auscultation beatriz. ABSENT: rales, rhonchi, wheezes Cardiovascular exam: PRESENT: RRR. ABSENT: diastolic murmur, rubs, systolic murmur GI/Abdominal exam: PRESENT: normal bowel sounds, soft, tenderness. ABSENT: distended, guarding, mass, organolmegaly, rebound Neurological exam: PRESENT: alert, awake, oriented to person, oriented to place, oriented to time, oriented to situation, CN II-XII grossly intact. ABSENT: motor sensory deficit Results Laboratory Results: 05/04/19 05:10 05/04/19 05:10 05/03/19 05/03/19 05/04/19 14:14 16:30 05:10 WBC 5.3 RBC 5.08 Hgb 13.4 L Hct 40.1 MCV 79 L MCH 26.3 L MCHC 33.3 RDW 13.8 Plt Count 172 Seg Neutrophils % 56.4 Sodium 135.8 L Potassium 4.2 Chloride 103 Carbon Dioxide 20 L Anion Gap 13 BUN 6 L Creatinine 0.86 Est GFR ( Amer) > 60 Glucose 219 H Lactic Acid 1.0 Calcium 9.6 Total Bilirubin AST Alkaline Phosphatase Total Protein Albumin 05/04/19 05:10 WBC RBC Hgb Hct MCV MCH MCHC RDW Plt Count Seg Neutrophils % Sodium 136.5 L Potassium 4.1 Chloride 103 Carbon Dioxide 19 L Anion Gap 15 BUN 10 Creatinine 0.97 Est GFR ( Amer) > 60 Glucose 220 H Lactic Acid Calcium 9.5 Total Bilirubin 1.1 AST 43 Alkaline Phosphatase 59 Total Protein 6.5 Albumin 3.7 05/03/19 18:58 Troponin I < 0.012 Impressions: Acute Abdomen Series 05/03/19 09:30 IMPRESSION: NO RADIOGRAPHIC EVIDENCE FOR ACUTE ABDOMINAL DISEASE. Assessment and Plan - Diagnosis (1) DKA (diabetic ketoacidoses) Qualifiers: Diabetes mellitus type: type 1 Is this a current diagnosis for this admission?: Yes Plan: Resolved Anion gap WNL. P.o. tolerant. Still complaining of mild nausea vomiting and epigastric abdominal pain Continue basal insulin, sliding scale insulin, correctional insulin, hypoglycemic protocol, Accu-Chek, antiemetics, opioid and non-opioid analgesics, diabetic education, advance diet as tolerated. Pending anti-RUBEN. (2) Type 1 diabetes Qualifiers: Diabetes mellitus complication status: without complication Qualified Code(s): E10.9 - Type 1 diabetes mellitus without complications Is this a current diagnosis for this admission?: Yes Plan: Given patient's presentation, age, metabolic acidosis, elevated anion gap, urine ketones, patient most likely has undiagnosed type 1 diabetes presenting in DKA. Plan as per #1. Pending anti-RUBEN. (3) DKA, type 1 Qualifiers: Diabetes mellitus complication detail: without coma Qualified Code(s): E10.10 - Type 1 diabetes mellitus with ketoacidosis without coma Is this a current diagnosis for this admission?: Yes (4) Hepatic steatosis Is this a current diagnosis for this admission?: Yes Plan: Likely alcohol-related. Will obtain lipid panel. Outpatient gastroenterology follow-up. (5) Nausea vomiting and diarrhea Is this a current diagnosis for this admission?: Yes Plan: Significant improvement. Due to #1. Supportive measures, antiemetics, monitor volume status and electrolytes replace as needed. (6) Obesity (BMI 30.0-34.9) Is this a current diagnosis for this admission?: Yes Plan: BMI 34.1. Will obtain TSH. Diet and lifestyle modification recommended.
[2019-05-04] MEDS ORDERED: INSULIN GLARGINE,HUM.REC.ANLOG 1,000 UNIT/10 ML VIAL (PYX) SUBCUT ONE ×3 (13:30→15:00)
[2019-05-04] MEDS: OXYCODONE-ACETAMINOPHEN 5-325 MG TABLET PO PRN (14:08)
[2019-05-04] MEDS: KETOROLAC TROMETHAMINE INJ/PF 30 MG/1 ML SDV IV PRN (16:32)
[2019-05-04] MEDS: PROMETHAZINE HCL INJ 25 MG/1 ML VIAL IV PRN (16:32)
[2019-05-04] MEDS: PANTOPRAZOLE SODIUM 40 MG TABLET.DR PO SCH (16:34)
--- NOTE | 2019-05-04 16:46 | RADIOLOGY REPORT (SQ) ---
EXAM DESCRIPTION: CT HEAD WITHOUT COMPLETED DATE/TIME: 05/04/2019 4:31 pm REASON FOR STUDY: persistent headaches COMPARISON: None. TECHNIQUE: Axial images acquired through the brain without intravenous contrast. Images reviewed wi th bone, brain and subdural windows. Additional sagittal and coronal reconstructions were generated. Images stored on PACS. All CT scanners at this facility use dose modulation, iterative reconstruction, and/or weight based d osing when appropriate to reduce radiation dose to as low as reasonably achievable (ALARA). [facility]: Dose Right [facility]: CareDose [facility]: Dose Right [facility]: Teradose 4D [facility]: Braingaze RADIATION DOSE: CT Rad equipment meets quality standard of care and radiation dose reduction techniq ues were employed. CTDIvol: 53.2 mGy. DLP: 1044 mGy-cm. mGy. LIMITATIONS: None. FINDINGS: VENTRICLES: Normal size and contour. CEREBRUM: No masses. No hemorrhage. No midline shift. No evidence for acute infarction. Normal gra y/white matter differentiation. No areas of low density in the white matter. CEREBELLUM: No masses. No hemorrhage. No alteration of density. No evidence for acute infarction. EXTRAAXIAL SPACES: No fluid collections. No masses. ORBITS AND GLOBE: No intra- or extraconal masses. Normal contour of globe without masses. CALVARIUM: No fracture. PARANASAL SINUSES: There is a mucous retention cyst in the right maxillary sinus and small mucous ret ention cysts on the left. SOFT TISSUES: No mass or hematoma. OTHER: No other significant finding. IMPRESSION: Sinus disease. No acute intracranial imaging findings. EVIDENCE OF ACUTE STROKE: NO. COMMENT: Quality ID # [id number]: Final reports with documentation of one or more dose reduction techniques (e.g., Automated exposure control, adjustment of the mA and/or kV according to patient size, use of iterative reconstruction technique) TECHNICAL DOCUMENTATION: JOB ID: [id number] [employer]- All Rights Reserved Reading location - IP/workstation name: [email or web address]
[2019-05-05] MEDS: ONDANSETRON HCL INJ/PF 4 MG/2 ML SDV IV PRN (00:09)
[2019-05-05] MEDS: KETOROLAC TROMETHAMINE INJ/PF 30 MG/1 ML SDV IV PRN ×2 (00:30→09:45)
[2019-05-05 05:10] LABS: ALBUMIN 3.9 g/dL (3.5-5.0); ALKALINE PHOSPHATASE 56 U/L (38-126); ANION GAP 9 (5-19); ASPARTATE AMINO TRANSFERASE 53 U/L (17-59); BILIRUBIN,DIRECT 0.3 mg/dL (0.0-0.4); BILIRUBIN,TOTAL 1.2 mg/dL (0.2-1.3); BLOOD UREA NITROGEN 9 mg/dL (7-20); CALCIUM 9.7 mg/dL (8.4-10.2); CARBON DIOXIDE 27 mmol/L (22-30); CHLORIDE 101 mmol/L (98-107); GLUCOSE 222 mg/dL (75-110); POTASSIUM 3.8 mmol/L (3.6-5.0)
[2019-05-05] MEDS: PANTOPRAZOLE SODIUM 40 MG TABLET.DR PO SCH (05:10)
[2019-05-05] MEDS: OXYCODONE-ACETAMINOPHEN 5-325 MG TABLET PO PRN ×2 (05:10→11:29)
[2019-05-05] MEDS: INSULIN LISPRO 100 UNIT/ML 3 ML VIAL SUBCUT SCH ×4 (08:23→12:13)
[2019-05-05] MEDS: ENOXAPARIN SODIUM INJ 40 MG/0.4 ML DISP.SYRIN SUBCUT SCH (09:46)
[2019-05-05] MEDS ORDERED: INSULIN GLARGINE,HUM.REC.ANLOG 1,000 UNIT/10 ML VIAL SUBCUT SCH (10:00)
[2019-05-05 15:21] VITALS: BP 126/78
--- NOTE | 2019-05-05 15:53 | PDOC DISCHARGE SUMMARY ---
Impression - Admit/DC Date/PCP Admission Date/Primary Care Provider: 05/03/19 16:04 Discharge Date: 05/05/19 - Discharge Diagnosis (1) DKA (diabetic ketoacidoses) Is this a current diagnosis for this admission?: Yes (2) Type 1 diabetes Is this a current diagnosis for this admission?: Yes (3) DKA, type 1 Is this a current diagnosis for this admission?: Yes (4) Hepatic steatosis Is this a current diagnosis for this admission?: Yes (5) Nausea vomiting and diarrhea Is this a current diagnosis for this admission?: Yes (6) Obesity (BMI 30.0-34.9) Is this a current diagnosis for this admission?: Yes - Additional Information Resuscitation Status: Full Code Discharge Diet: Diabetic Discharge Activity: Activity As Tolerated Prescriptions: Insulin Glargine,Hum.rec.anlog [Lantus Insulin 100 Unit/1 ml 10 ml] 30 unit SUBCUT QHS 30 Days #1 unit Ibuprofen [Motrin 800 mg Tablet] 800 mg PO Q8H PRN 5 Days #15 tab PRN Reason: Insulin Aspart [Novolog Flexpen] 0 - 12 unit SUBCUT .SLD SCALE 30 Days #1 pen Insulin Aspart [Novolog Flexpen] 5 unit SUBCUT AC 3 Days #1 pen Pantoprazole Sodium [Protonix [address] Tablet] 40 mg PO BID 7 Days #14 tablet. Ondansetron HCl [Zofran 4 mg Tablet] 1 tab PO Q6H PRN 7 Days #28 tablet PRN Reason: Home Medications: Ibuprofen [Motrin 800 mg Tablet] 800 mg PO Q8H PRN 5 Days #15 tab 05/05/19 Insulin Aspart [Novolog Flexpen] 0 - 12 unit SUBCUT .SLD SCALE 30 Days #1 pen 05/05/19 Insulin Aspart [Novolog Flexpen] 5 unit SUBCUT AC 3 Days #1 pen 05/05/19 Insulin Glargine,Hum.rec.anlog [Lantus Insulin 100 Unit/1 ml 10 ml] 30 unit SUBCUT QHS 30 Days #1 unit 05/05/19 Ondansetron HCl [Zofran 4 mg Tablet] 1 tab PO Q6H PRN 7 Days #28 tablet 05/05/19 Pantoprazole Sodium [Protonix [address] Tablet] 40 mg PO BID 7 Days #14 tablet. 05/05/19 History of Present Illiness History of Present Illness: CHUCK CHARLES is a 23 year old male with no significant past medical history presented to ED complaining of headache on 04/30/2019 associated with dizziness was sent home from ED, presented back to the ED on 05/02/2019 complaining of nausea, vomiting, diarrhea and epigastric abdominal pain, was noted to have a bicarb of 26 on 04/30/2019 and 17 on 05/02/2019, an upper quadrant abdominal ultrasound was done which was positive for hepatic steatosis patient also had his hemoglobin A1c checked which came back at 14%, was sent home on metformin and presented back to ED complaining of persistent nausea vomiting and abdominal pain note to have anion gap of 22, UA positive for glucosuria and ketones of 80 patient was started on aggressive volume resuscitation, IV morphine for abdom inal pain and antiemetics, anion gap closed to 13 however patient continued to complain of nausea vomiting and abdominal pain. Hospitalist consulted for admission. On my encounter patient is complaining of persistent epigastric abdominal pain, nausea and vomiting, and is stating that for the last several months he has noticed to have excessive polyuria, polyphagia and nocturia denies ever being diagnosed with diabetes however states that her mother has history of type 2 diabetes. Denies any chest pain, fever, chills, vision changes, weight changes, sick contact, recent travel, numbness, tingling, lower extremity edema, dysuria. Hospital Course Hospital Course: (1) DKA (diabetic ketoacidoses) Resolved Anion gap WNL. P.o. tolerant. Was a started on basal insulin, sliding scale insulin, correctional insulin, hypoglycemic protocol, Accu-Chek, antiemetics, opioid and non-opioid analgesics. Diabetic education was provided. Nausea vomiting and abdominal pain resolved. P.o. tolerant having normal bowel and bladder movement. Discharged on basal, sliding scale and correctional insulin. Strongly encouraged to follow-up with PCP for readjustment of his diabetic medications. Pending anti-RUBEN at the time of discharge. (2) Type 1 diabetes Given patient's presentation, age, metabolic acidosis, elevated anion gap, urine ketones, patient most likely has undiagnosed type 1 diabetes presenting in DKA. Plan as per #1. Pending anti-RUBEN. (3) Hepatic steatosis Likely alcohol-related. Liver function chemistries WNL on this admission. Strongly encouraged to follow-up with PCP and ask to be referred for gastroenterology for follow-up. (4) Nausea vomiting and diarrhea Resolved. Due to #1. Started on supportive measures, antiemetics. Volume status and electrolytes monitored. (5) Obesity (BMI 30.0-34.9) BMI 34.1. Diet and lifestyle modification recommended. Physical Exam Vital Signs: Temp Pulse Resp BP Pulse Ox 98.6 F 56 L 16 126/78 H 100 05/05/19 15:13 05/05/19 15:13 05/05/19 15:13 05/05/19 15:13 05/05/19 15:13 Intake & Output 05/04/19 05/05/19 05/06/19 06:59 06:59 06:59 Intake Total 3633 2533 500 Output Total 0 1 Balance 3633 2532 500 Weight 117.1 kg 118.2 kg General appearance: PRESENT: obese Head exam: PRESENT: atraumatic, normocephalic Respiratory exam: PRESENT: clear to auscultation beatriz. ABSENT: rales, rhonchi, wheezes Pulses: PRESENT: normal dorsalis pedis pul Extremities exam: PRESENT: full ROM. ABSENT: calf tenderness, clubbing, pedal edema Neurological exam: PRESENT: alert, awake, oriented to person, oriented to place, oriented to time, oriented to situation, CN II-XII grossly intact. ABSENT: motor sensory deficit Results Laboratory Results: WBC 5.3 10^3/uL (4.0-10.5) 05/04/19 05:10 RBC 5.08 10^6/uL (4.35-5.55) 05/04/19 05:10 Hgb 13.4 g/dL (13.5-17.0) L 05/04/19 05:10 Hct 40.1 % (37.9-51.0) 05/04/19 05:10 MCV 79 fl (80-97) L 05/04/19 05:10 MCH 26.3 pg (27.0-33.4) L 05/04/19 05:10 MCHC 33.3 g/dL (32.0-36.0) 05/04/19 05:10 RDW 13.8 % (11.5-14.0) 05/04/19 05:10 Plt Count 172 10^3/uL (150-450) 05/04/19 05:10 Lymph % (Auto) 28.8 % (13-45) 05/04/19 05:10 [place] % (Auto) 13.7 % (3-13) H 05/04/19 05:10 Eos % (Auto) 0.7 % (0-6) 05/04/19 05:10 Baso % (Auto) 0.4 % (0-2) 05/04/19 05:10 Absolute Neuts (auto) 3.0 10^3/uL (1.7-8.2) 05/04/19 05:10 Absolute Lymphs (auto) 1.5 10^3/uL (0.5-4.7) 05/04/19 05:10 Absolute Monos (auto) 0.7 10^3/uL (0.1-1.4) 05/04/19 05:10 Absolute Eos (auto) 0.0 10^3/uL (0.0-0.6) 05/04/19 05:10 Absolute Basos (auto) 0.0 10^3/uL (0.0-0.2) 05/04/19 05:10 Seg Neutrophils % 56.4 % (42-78) 05/04/19 05:10 VBG pH 7.41 (7.30-7.42) 05/03/19 07:15 VBG pCO2 22.4 mmHg (35-63) L 05/03/19 07:15 VBG HCO3 13.8 mmol/L (20-32) L 05/03/19 07:15 VBG Base Excess -8.2 mmol/L 05/03/19 07:15 Sodium 137.3 mmol/L (137-145) 05/05/19 04:24 Potassium 3.8 mmol/L (3.6-5.0) 05/05/19 04:24 Chloride 101 mmol/L (98-107) 05/05/19 04:24 Carbon Dioxide 27 mmol/L (22-30) 05/05/19 04:24 Anion Gap 9 (5-19) 05/05/19 04:24 BUN 9 mg/dL (7-20) 05/05/19 04:24 Creatinine 0.99 mg/dL (0.52-1.25) 05/05/19 04:24 Est GFR ( Amer) > 60 (>60) 05/05/19 04:24 Est GFR (MDRD) Non-Af > 60 (>60) 05/05/19 04:24 Glucose 222 mg/dL (75-110) H 05/05/19 04:24 POC Glucose 140 mg/dL (70-110) H 05/05/19 11:34 Lactic Acid 1.0 mmol/L (0.7-2.1) 05/03/19 16:30 Calcium 9.7 mg/dL (8.4-10.2) 05/05/19 04:24 Phosphorus 2.5 mg/dL (2.5-4.5) 05/03/19 05:10 Magnesium 1.6 mg/dL (1.6-2.3) 05/03/19 05:10 Total Bilirubin 1.2 mg/dL (0.2-1.3) 05/05/19 04:24 Direct Bilirubin 0.3 mg/dL (0.0-0.4) 05/05/19 04:24 Neonat Total Bilirubin Not Reportable 05/05/19 04:24 Neonat Direct Bilirubin Not Reportable 05/05/19 04:24 Neonat Indirect Bili Not Reportable 05/05/19 04:24 AST 53 U/L (17-59) 05/05/19 04:24 ALT 68 U/L (<50) 05/05/19 04:24 Alkaline Phosphatase 56 U/L (38-126) 05/05/19 04:24 Troponin I < 0.012 ng/mL 05/03/19 18:58 Total Protein 7.0 g/dL (6.3-8.2) 05/05/19 04:24 Albumin 3.9 g/dL (3.5-5.0) 05/05/19 04:24 Lipase 232.0 U/L (23-300) 05/03/19 05:10 Urine Color 05/03/19 05:30 Urine Color STRAW 05/03/19 05:30 Urine Appearance 05/03/19 05:30 Urine Appearance CLEAR 05/03/19 05:30 Urine pH (5.0-9.0) 05/03/19 05:30 Urine pH 5.0 (5.0-9.0) 05/03/19 05:30 Ur Specific Rentz 05/03/19 05:30 Ur Specific [place] 1.016 05/03/19 05:30 Urine Protein mg/dL (NEGATIVE) 05/03/19 05:30 Urine Protein NEGATIVE mg/dL (NEGATIVE) 05/03/19 05:30 Urine Glucose (UA) mg/dL (NEGATIVE) 05/03/19 05:30 Urine Glucose (UA) >=500 mg/dL (NEGATIVE) H 05/03/19 05:30 Urine Ketones mg/dL (NEGATIVE) 05/03/19 05:30 Urine Ketones 80 mg/dL (NEGATIVE) H 05/03/19 05:30 Urine Blood (NEGATIVE) 05/03/19 05:30 Urine Blood NEGATIVE (NEGATIVE) 05/03/19 05:30 Urine Nitrite (NEGATIVE) 05/03/19 05:30 Urine Nitrite NEGATIVE (NEGATIVE) 05/03/19 05:30 Urine Bilirubin (NEGATIVE) 05/03/19 05:30 Urine Bilirubin NEGATIVE (NEGATIVE) 05/03/19 05:30 Urine Urobilinogen mg/dL (<2.0) 05/03/19 05:30 Urine Urobilinogen NEGATIVE mg/dL (<2.0) 05/03/19 05:30 Ur Leukocyte Esterase (NEGATIVE) 05/03/19 05:30 Ur Leukocyte Esterase NEGATIVE (NEGATIVE) 05/03/19 05:30 Urine WBC (Auto) 1 /HPF 05/03/19 05:30 Urine RBC (Auto) /HPF 05/03/19 05:30 Squamous Epi Cells Auto /HPF 05/03/19 05:30 Urine Mucus (Auto) /LPF 05/03/19 05:30 Urine Mucus (Auto) RARE /LPF 05/03/19 05:30 Urine Ascorbic Acid (NEGATIVE) 05/03/19 05:30 Urine Ascorbic Acid NEGATIVE (NEGATIVE) 05/03/19 05:30 05/03/19 18:58 Troponin I < 0.012 Impressions: Acute Abdomen Series 05/03/19 09:30 IMPRESSION: NO RADIOGRAPHIC EVIDENCE FOR ACUTE ABDOMINAL DISEASE. Head CT 05/04/19 00:00 IMPRESSION: Sinus disease. No acute intracranial imaging findings. EVIDENCE OF ACUTE STROKE: NO. Plan Goals: Dr. Betancourt ---[facility] ---has an appointment 05-09-2019@2:30 Time Spent: Greater than 30 Minutes Stroke Is this a Stroke Patient?: No Acute Heart Failure - Is this a Heart Failure Patient?: No
== END 2019-05-05 15:58 | disposition home or self-care (01) ==
LOC: ER 04:29 → EH 16:04 → INTOOBSV 16:04 → 3N 17:31
PROVIDERS: ADMIT Internal Medicine; ATTEND Internal Medicine
DX: E10.10 Type 1 diabetes mellitus with ketoacidosis without coma (principal); K76.0 Fatty (change of) liver, not elsewhere classified; R11.2 Nausea with vomiting, unspecified; R19.7 Diarrhea, unspecified; E66.9 Obesity, unspecified; R51 Headache; B34.9 Viral infection, unspecified; J32.9 Chronic sinusitis, unspecified; L80 Vitiligo; Z68.34 Body mass index [BMI] 34.0-34.9, adult; Z83.3 Family history of diabetes mellitus
CPT/HCPCS: 96376; 99291; 96361; 96374; 96375; 36415 ×3; 82962 ×3; 83605; 83690; 83735; 84100; 85025 ×2; 80053 ×3; 81001; 84484; 82803; 83519; 74022; 70450; 93005; 93010; G0378 ×4; J1815 ×6; J3490 ×6; J1885 ×2; J2270 ×2; J1650 ×2; J2550 ×2; J2405 ×3; J7040; J7120 ×2; S0028